=== PATIENT | female | born 1945 | race Caucasian/White ===

== ENCOUNTER 2018-03-22 19:19 | Emergency (ER) | payer MEDICARE ==
[2018-03-22 19:58] VITALS: BP 130/63
--- NOTE | 2018-03-22 20:27 | UC ---
Truncal Trauma HPI - HPI Summary HPI Summary: Tripped over cat this morning and fell onto the left side with elbow abrasion and left sided rib pain. - History Of Current Complaint Chief Complaint: UCTrauma Stated Complaint: RIB PAIN Time Seen by Provider: 03/22/18 20:18 Hx Obtained From: Patient Onset/Duration: Sudden Onset, Lasting Hours - 10, Still Present Onset Of Pain: Immediate Severity Initially: Severe Pain Intensity: 7 Mechanism Of Injury: Blunt Trauma, Fall From A Standing Position Aggravating Factor(s): Deep Breathing Alleviating factor(s): Shallow Breathing Associated Signs And Symptoms: Positive: Chest Pain - Allergies/Home Medications Allergies/Adverse Reactions: Allergies Allergy/AdvReac Type Severity Reaction Status Date / Time Sulfa (Sulfonamide Allergy Vomiting Verified 03/22/18 19:58 Antibiotics) Home Medications: Home Medications Acetaminophen/Diphenhydramine [Tylenol Pm Ex-Strength Caplet] 1 each PO BEDTIME 03/22/18 [History Confirmed 03/22/18] Baclofen TAB* [Lioresal TAB*] 10 mg PO BEDTIME 03/22/18 [History Confirmed 03/22] C,E,Zinc,Copper 11/Jvnxw6e/Lut [Ocuvite Adult 50 Plus Softgel] 1 each PO DAILY 03/22/18 [History Confirmed 03/22/18] Carbidopa/Levodopa [Carbidopa-Levodopa 25-100 Tab] 1 each PO TID 03/22/18 [ History Confirmed 03/22/18] Latanoprost 0.005%* [Xalatan 0.005%*] 1 drop BOTH EYES QPM 03/22/18 [History Confirmed 03/22/18] Lisinopril TAB* [Prinivil TAB 10 MG*] 40 mg PO DAILY 03/22/18 [History Confirmed 03/22/18] Metoprolol Tartrate 50 mg PO DAILY 03/22/18 [History Confirmed 03/22/18] NIFEdipine ER TAB* [Procardia Xl TAB*] 90 mg PO DAILY 03/22/18 [History Confirmed 03/22/18] Timolol XE 0.5% (OPHTH)(NF) [Timoptic-XE 0.5% (OPHTH)(NF)] 1 drop BOTH EYES BID 03/22/18 [History Confirmed 03/22/18] PMH/Surg Hx/FS Hx/Imm Hx Cardiovascular History: Hypertension Other Neurological History: Parkinson's disease - Surgical History Surgical History: Yes Surgery Procedure, Year, and Place: Skin cancer Squamous cell left leg - Family History Known Family History: Positive: Cardiac Disease, Hypertension Negative: Diabetes - Social History Occupation: Retired Lives: With Family Alcohol Use: None Substance Use Type: None Smoking Status (MU): Never Smoked Tobacco Review of Systems Skin: Bruising - on the left hip. Abrasion on the left forearm. Is Patient Immunocompromised?: No All Other Systems Reviewed And Are Negative: Yes Physical Exam Triage Information Reviewed: Yes Appearance: Well-Appearing, Well-Nourished, Pain Distress, Thin Vital Signs: Initial Vital Signs Temp 98.0 F 03/22/18 19:51 Pulse 104 03/22/18 19:51 Resp 17 03/22/18 19:51 BP 130/63 03/22/18 19:51 Pulse Ox 100 03/22/18 19:51 Vital Signs Reviewed: Yes Neck exam: Normal Respiratory: Positive: Lungs clear. Negative: Chest non-tender - tender left lateral ribs. Cardiovascular Exam: Normal Musculoskeletal Exam: Normal Neurological: Positive: Abnormal Muscle Tone - tremor with cogwheel regidity Psychological Exam: Normal Skin: Positive: Other - abrasion left extensor forearm. Diagnostics - Radiology No standard instances Xray Interpretation: No Acute Changes Radiology Interpretation Completed By: ED Physician Truncal Trauma Course/Dx - Differential Dx/Diagnosis Differential Diagnosis/HQI/PQRI: Chest Wall Contusion, Chest Wall Abrasion, Rib Fracture Provider Diagnoses: Rib contusion. Abrasion forearm. Discharge - Sign-Out/Discharge Documenting (check all that apply): Discharge/Admit/Transfer - Discharge Plan Condition: Stable Disposition: HOME Prescriptions: HYDROcodone/ACETAMIN 5-325 MG* [[place] 5-325 TAB*] 1 tab PO Q6H PRN #10 tab MDD 4 PRN Reason: Pain - Chest Patient Education Materials: Rib Contusion (ED), Abrasion (ED), Hydrocodone/ Acetaminophen (By mouth) Referrals: Machelle Gusman MD [Primary Care Provider] - Additional Instructions: Use ice for the first 48 hours then heat for the pain. If you cannot sleep with the Tylenol pick and shovel man the prescription for the hydrocodone. - Billing Disposition and Condition Condition: STABLE Disposition: Home
--- NOTE | 2018-03-22 21:00 | RAD ---
Indication: Left rib injury after fall 3 views of left ribs are reviewed. There is suggestion of a slight deformity of the left eighth rib. Clinical correlation is suggested. No other fractures are noted. IMPRESSION: Question of the left eighth rib deformity without evidence of pneumothorax. Underlying fracture is not excluded.
== END 2018-03-22 21:21 | disposition home or self-care (01) ==
LOC: UCCORT 19:19
DX: S20.20XA Contusion of thorax, unspecified, initial encounter (principal); S50.312A Abrasion of left elbow, initial encounter; W01.0XXA Fall on same level from slipping, tripping and stumbling without subsequent striking against object, initial encounter; Y93.9 Activity, unspecified; Y92.009 Unspecified place in unspecified non-institutional (private) residence as the place of occurrence of the external cause; Z88.2 Allergy status to sulfonamides; I10 Essential (primary) hypertension; G20 Parkinson's disease; Z85.828 Personal history of other malignant neoplasm of skin
CPT/HCPCS: 99212; G0463

== ENCOUNTER 2019-07-21 11:43 | Emergency (ER) | payer MEDICARE ==
[2019-07-21 12:12] VITALS: BP 139/51
--- NOTE | 2019-07-21 12:33 | UC ---
Abdominal Pain Female HPI - HPI Summary HPI Summary: Patient is a 73-year-old female with parkinsons presenting with left hip and leg pain x1 week. Patient states it began as lower back pain 2 weeks ago when lifting a pumpkin. Her back pain has resolved since. States the hip pain is only present when ambulating. Describes pain as a "soreness"in that it radiates down the anterior thigh. She also states the pain "moves around." Denies specific injury or trauma. Denies swelling and bruising. Denies numbness and tingling. Denies incontinence or constipation. Denies urinary symptoms. Denies abdominal pain. Denies nausea, vomiting, diarrhea. Denies fever and chills. Patient is a relatively poor historian. - History of Current Complaint Chief Complaint: UCAbdominalPain Stated Complaint: ABDOMINAL PAIN X 2WKS Hx Obtained From: Patient Onset/Duration: Gradual Onset, Lasting Weeks Pain Intensity: 0 Allergies/Adverse Reactions: Allergies Allergy/AdvReac Type Severity Reaction Status Date / Time Sulfa (Sulfonamide Allergy Vomiting Verified 07/21/19 11:58 Antibiotics) Home Medications: Home Medications Aspirin TAB* [Aspirin 325 MG TAB*] 325 mg PO DAILY PRN 07/21/19 [History Confirmed 07/21/19] Carbidopa 1 tab PO TID 07/21/19 [History] PMH/Surg Hx/FS Hx/Imm Hx - Additional Past Medical History Additional PMH: Parkinson's Disease Cardiovascular History: Hypertension - Surgical History Surgical History: Yes Surgery Procedure, Year, and Place: Skin cancer Squamous cell left leg - Family History Known Family History: Positive: Cardiac Disease, Hypertension Negative: Diabetes - Social History Alcohol Use: None Substance Use Type: None Smoking Status (MU): Never Smoked Tobacco Review of Systems All Other Systems Reviewed And Are Negative: Yes Constitutional: Positive: Negative ENT: Positive: Negative Respiratory: Positive: Negative Cardiovascular: Positive: Negative Gastrointestinal: Positive: Negative. Negative: Abdominal Pain, Vomiting, Diarrhea, Nausea Genitourinary: Positive: Negative Musculoskeletal: Positive: Arthralgia, Myalgia. Negative: Calf Tenderness, Decreased ROM, Edema Neurological: Negative: Weakness, Paresthesia, Numbness Physical Exam Triage Information Reviewed: Yes Appearance: Well-Appearing, No Pain Distress, Well-Nourished Vital Signs: Initial Vital Signs Temp 98.5 F 07/21/19 12:07 Pulse 78 07/21/19 12:07 Resp 22 07/21/19 12:07 BP 139/51 07/21/19 12:07 Pulse Ox 100 07/21/19 12:07 Vital Signs Reviewed: Yes Eyes: Positive: Conjunctiva Clear ENT: Positive: Hearing grossly normal Neck: Positive: Supple Respiratory Exam: Normal Respiratory: Positive: Lungs clear, Normal breath sounds, No respiratory distress. Negative: Crackles, Rhonchi, Stridor, Wheezing Cardiovascular Exam: Normal Cardiovascular: Positive: RRR, Pulses Normal - Strong pedal pulses bilaterally, Brisk Capillary Refill Musculoskeletal Exam: Normal Musculoskeletal: Positive: Strength Intact, ROM Intact, No Edema, Other: - No tenderness to palpation of hip or leg. Neurological: Positive: Alert Psychological: Positive: Other: - Flat affect. Slow to respond Diagnostics - Radiology L hip Radiology Interpretation Completed By: Radiologist Summary of Radiographic Findings: IMPRESSION: OSTEOARTHRITIS. NO ACUTE OSSEOUS INJURY. IF SYMPTOMS PERSIST, RECOMMEND REPEAT IMAGING. Abd Pain Female Course/Dx - Course Course Of Treatment: Discussed negative x-rays with patient. I instructed her to continue symptomatic treatment. Instructed to follow up with PCP or orthopedics if pain persists. Instructed her to ED if symptoms worsen. Patient was understanding and agreed with the treatment plan. I reviewed the triage note which initially had patient complaining of abdominal pain. During interview patient specifically denied any abdominal pain or constipation when asked. Patient was poor historian and there is concern for possible dementia. - Differential Dx/Diagnosis Provider Diagnosis: Hip joint painful on movement Discharge ED - Sign-Out/Discharge Documenting (check all that apply): Patient Departure All imaging exams completed and their final reports reviewed: Yes - Discharge Plan Condition: Stable Disposition: HOME Patient Education Materials: Osteoarthritis (ED), Hip Pain (ED) Referrals: Isabell Ledesma MD [Primary Care Provider] - If Needed Kevin Caruso MD [Medical Doctor] - If Needed Additional Instructions: As discussed, your hip x-rays show an mild osteoarthritis without any fractures. Continue to rest and take aspirin as directed for pain relief. Follow-up with your PCP or the orthopedic referral listed below if your pain persists. Go to the emergency room if you experienced severe pain of her leg, the leg becomes cold and numb, or your are unable to bear weight on that leg. - Billing Disposition and Condition Condition: STABLE Disposition: Home - Attestation Statements Provider Attestation: I was available for consult. This patient was seen by the LUCY. The patient was not presented to, seen by, or examined by me. -Michael
== END 2019-07-21 13:25 | disposition home or self-care (01) ==
LOC: UCCORT 11:43
DX: M25.552 Pain in left hip (principal); M79.652 Pain in left thigh; Z88.2 Allergy status to sulfonamides
CPT/HCPCS: 99211; G0463